=== PATIENT | male | born 1955 | race Caucasian/White ===

== ENCOUNTER 2022-02-22 17:22 | Emergency (ER) | payer BC, OTHER ==
[2022-02-22 18:04] VITALS: BP 130/78; PULSE 98
[2022-02-22] MEDS ORDERED: Sodium Chloride 0.9% 10 ML Syringe FLUSH PRN (18:34)
[2022-02-22] MEDS ORDERED: Ondansetron 4 MG/2 ML SDV IVPUSH ONE (18:36)
[2022-02-22] MEDS ORDERED: Sodium Chloride 0.9% 1,000 ML IV ONE ×2 (18:36→22:17)
[2022-02-22] MEDS ORDERED: Loperamide 2 MG Cap PO ONE (18:42)
[2022-02-22 19:03] LABS: ESTIMATED GFR 68 mL/min (>60)
[2022-02-22 19:58] LABS: CORONAVIRUS COVID-19 NAA NEGATIVE (NEGATIVE)
[2022-02-22] MEDS ORDERED: HYDROmorphone 0.5 MG/0.5 ML Syringe IVPUSH ONE (20:04)
[2022-02-22] MEDS ORDERED: Iopamidol 612 MG/ML 100 ML Bottle IVPUSH ONE (20:25)
[2022-02-22] MEDS ORDERED: Sodium Chloride 0.9% 10 ML Syringe FLUSH ONE (20:25)
[2022-02-22] MEDS ORDERED: Iopamidol 612 MG/ML 50 ML SDV IVPUSH ONE (20:25)
[2022-02-22] MEDS ORDERED: cefTRIAXone 2 GM in Sodium Chloride 0.9% 100 ML IV ONE (21:50)
== END 2022-02-22 22:55 ==
LOC: JD.ED 17:22
DX: K56.609 Unspecified intestinal obstruction, unspecified as to partial versus complete obstruction (principal); Z20.822 Contact with and (suspected) exposure to COVID-19
CPT/HCPCS: 0241U; 36415; 43752; 71045; 71046; 74018; 74019; 74177; 80053; 83630; 83735; 85025; 86140; 87045; 87046; 87493; 87899; 96361; 96365; 96375; 99285; A9270; J0696; J1170; J2405; J3490; J7030; Q9967